=== PATIENT | female | born 1990 | race Caucasian/White ===

== ENCOUNTER → 2021-05-20 | Outpatient (CLI) | payer OTHER ==
[~2021-05-20] MED LIST: IBUPROFEN800 MG PO; MOBIC15 MG PO
== END ==
LOC: EXRD 08:00
DX: R11.0 Nausea (principal); K82.4 Cholesterolosis of gallbladder
CPT/HCPCS: 76705

== ENCOUNTER 2021-05-23 23:05 | Emergency (ER) | payer OTHER ==
[~2021-05-23 23:05] MED LIST changes: -IBUPROFEN800 MG PO
[2021-05-24] MEDS ORDERED: IBUPROFEN800 MG PO (01:34)
== END 2021-05-24 01:44 | disposition home or self-care (01) ==
LOC: ER1 23:05
DX: S90.31XA Contusion of right foot, initial encounter (principal); F17.200 Nicotine dependence, unspecified, uncomplicated; X58.XXXA Exposure to other specified factors, initial encounter; Y92.009 Unspecified place in unspecified non-institutional (private) residence as the place of occurrence of the external cause
CPT/HCPCS: 73610; 73630; 99283

== ENCOUNTER → 2021-06-27 | Outpatient (CLI) | payer OTHER ==
[~2021-06-27] MED LIST changes: +IBUPROFEN800 MG PO
== END ==
LOC: KOH-I 10:16
DX: M79.671 Pain in right foot (principal); M79.89 Other specified soft tissue disorders
CPT/HCPCS: 73630

== ENCOUNTER → 2021-07-21 | Outpatient (CLI) | payer OTHER | LOC: LAB 14:50 | DX: R11.0 Nausea (principal) | CPT/HCPCS: 36415; 80076; 82150; 83690 ==

== ENCOUNTER → 2021-08-02 | Outpatient (CLI) | payer OTHER | LOC: KOH-I 10:03 | DX: M79.671 Pain in right foot (principal); M21.611 Bunion of right foot | CPT/HCPCS: 73630 ==

== ENCOUNTER → 2021-08-09 | Outpatient (CLI) | payer OTHER | LOC: KOH-I 15:09 | DX: M25.571 Pain in right ankle and joints of right foot (principal); G89.29 Other chronic pain; M65.871 Other synovitis and tenosynovitis, right ankle and foot | CPT/HCPCS: 73721 ==

== ENCOUNTER → 2021-10-18 | Outpatient (CLI) | payer OTHER | LOC: KOH-I 11:55 | DX: M25.571 Pain in right ankle and joints of right foot (principal) | CPT/HCPCS: 73610; 73630 ==

== ENCOUNTER → 2021-12-16 | Outpatient (CLI) | payer OTHER | LOC: KOH-I 08:00 | DX: R11.0 Nausea (principal) | CPT/HCPCS: 76705 ==